=== PATIENT | male | born 1995 | race Two or more races ===

== ENCOUNTER 2024-10-12 08:23 | Inpatient (IN) | payer OTHER ==
[~2024-10-12] VITALS: Ht 188 cm; Wt 98.9 kg
--- NOTE | 2024-10-12 08:36 | ED.PDOC ---
History of Present Illness HPI Comments 29-year-old male came to the ER stating that he has been having nausea vomiting diarrhea since midnight. Unable to do his daily activities without having vomiting. Denies any past medical surgical history. Denies use of drugs. Denies any other symptoms. Chief Complaint: Nausea/Vomiting Time Seen by MD: 08:30 Reviewed Notes: Nurses Notes, Medications, Allergies Information Source: Patient Mode of Arrival: Ambulatory Severity: Moderate Timing: Hours Duration: Since onset Past Medical History PAST MEDICAL HISTORY: Denies Surgical History: Denies all surgeries Social History Smoker: Non-Smoker Alcohol: Denies ETOH Use Drugs: Denies Drug Use Constitutional: denies: chills, diaphoresis, fatigue, fever, malaise, sweats, weakness, others EENTM: denies: blurred vision, double vision, ear bleeding, ear discharge, ear drainage, ear pain, ear ringing, eye pain, eye redness, hearing loss, mouth pain, mouth swelling, nasal discharge, nose bleeding, nose congestion, nose pain, photophobia, tearing, throat pain, throat swelling, voice changes, others Respiratory: denies: cough, hemoptysis, orthopnea, SOB at rest, shortness of breath, SOB with excertion, stridor, wheezing, others Cardiovascular: denies: chest pain, dizzy spells, diaphoresis, Dyspnea on exertion, edema, irregular heart beat, left arm pain, lightheadedness, palpitations, PND, syncope, others Gastrointestinal: reports: diarrhea, nausea, vomiting; denies: abdomen distended, abdominal pain, blood streaked bowels, constipated, dysphagia, difficulty swallowing, hematemesis, melena, poor appetite, poor fluid intake, rectal bleeding, rectal pain, others Genitourinary: denies: burning, dysuria, flank pain, frequency, hematuria, incontinence, penile discharge, penile sore, pain, testicle pain, testicle swelling, urgency, others Neurological: denies: dizziness, fainting, headache, left sided numbness, left sided weakness, numbness, paresthesia, pre-existing deficit, right sided numbness, right sided weakness, seizure, speech problems, tingling, tremors, weakness, others Musculoskeletal: denies: back pain, gout, joint pain, joint swelling, muscle pain, muscle stiffness, neck pain, others Integumetry: denies: bruises, change in color, change in hair/nails, dryness, laceration, lesions, lumps, rash, wounds, others Allergic/Immunocompromised: denies: Difficulty Healing, Frequent Infections, Hives, Itching, others Hematologic/Lymphatic: denies: anemia, blood clots, easy bleeding, easy bruising, swollen glands, others Endocrine: denies: excessive hunger, excessive sweating, excessive thirst, excessive urination, flushing, intolerance to cold, intolerance to heat, unexplained weight gain, unexplained weight loss, others Psychiatric: denies: anxiety, bipolar disorder, depression, hopeless, panic disorder, schizophrenia, sleepless, suicidal, others Physical Exam General Appearance: Moderate Distress HEENT: Normal ENT Inspection, Pharynx Normal, TMs Normal Neck: Full Range of Motion, Non-Tender, Normal, Normal Inspection Respiratory: Chest Non-Tender, Lungs Clear, No Accessory Muscle Use, No Respiratory Distress, Normal Breath Sounds Cardiovascular: No Edema, No JVD, No Murmur, No Gallop, Normal Peripheral Pulses, Regular Rate/Rhythm Breast Exam: Deferred Gastrointestinal: No Organomegaly, Non Tender, No Pulsatile Mass, Normal Bowel Sounds, Soft Genitalia: Deferred Pelvic: Deferred Rectal: Deferred Extremities: No calf tenderness, Normal capillary refill, Normal inspection, Normal range of motion, Non-tender, No pedal edema Musculoskeletal : Apperance: Normal Neurologic: Alert, collection advisor II-XII nml as Tested, No Motor Deficits, Normal Affect, Normal Mood, No Sensory Deficits Cerebellar Function: Normal Reflexes: Normal Skin: Dry, Normal Color, Warm Peripheral Pulses: 3+ Radial (R), 3+ Radial (L) Lymphatic: No Adenopathy Was a procedure done? Was a procedure done?: No Differential Dx Considerations may include: Gastroenteritis Electrolyte imbalance X-Ray, Labs, Meds, VS Vital Signs Date Time Temp Pulse Resp B/P (MAP) Pulse Ox O2 Delivery O2 Flow Rate FiO2 10/12/24 08:51 98.0 108 16 135/85 (102) 97 98.0 10/12/24 08:51 108 16 97 Room Air 10/12/24 08:32 98.0 108 16 135/85 (102) 97 Lab Test 10/12/24 10:09 Range/Units White Blood Count 12.7 H 4.4-10.8 10^3/uL Red Blood Count 5.54 4.5-5.90 10^6/uL Hemoglobin 15.6 13.5-17.5 g/dL Hematocrit 46.6 41.0-53.0 % Mean Corpuscular Volume 84.2 80.0-100.0 fL Mean Corpuscular Hemoglobin 28.2 28.0-32.0 pg Mean Corpuscular Hemoglobin Concent 33.5 32.0-36.0 g/dL Red Cell Distribution Width 15.4 H 11.8-14.3 % Platelet Count 201 140-450 10^3/uL Mean Platelet Volume 8.2 6.9-10.8 fL Neutrophils (%) (Auto) 37.0-80.0 % Lymphocytes (%) (Auto) 10.0-50.0 % Monocytes (%) (Auto) 0.0-12.0 % Basophils (%) (Auto) 0.0-2.0 % Neutrophils # (Auto) 1.6-8.6 10 ^3/uL Lymphocytes # (Auto) 0.4-5.4 10 ^3/uL Monocytes # (Auto) 0-1.3 10 ^3/uL Differential Total Cells Counted 100.0 100 Neutrophils % (Manual) 90 H 37.0-80.0 Band Neutrophils % (Manual) 0 Lymphocytes % (Manual) 7 L 10.0-50.0 Monocytes % (Manual) 3 0-12 Eosinophils % (Manual) 0 0-7 Basophils % (Manual) 0 0.0-2.0 Metamyelocytes % (manual) 0 Myelocytes % (Manual) 0 Promyelocytes % (Manual) 0 Blast Cells % (Manual) 0 Reactive Lymphocytes 0 Smudge Cells 6 /100 WBC Platelet Estimate Adequate Patient alert. Complaining of nausea vomiting diarrhea. Vitals stable. Answering all questions. Abdomen is soft nontender. Ambulating. Was given Zofran. See elevated. Was given Rocephin. Was given Flagyl. Establish intravenous access. Was given fluids. Continue monitoring. Time of 1ST Reevaluation: 08:35 Reevaluation 1ST: Unchanged Patient Education/Counseling: Diagnosis, Treatment, Prognosis Family Education/Counseling: No Family Present Departure 1 Departure Time of Disposition: 08:35 Impression: Primary Impression: Gastroenteritis Disposition: 09 ADMITTED INPATIENT Admit to: Med Surg Condition: Guarded Critical Care Note Critical Care Time?: No Stability Stability form required: No Heart Score Heart Score: Heart Score Response (Comments) Value History N/A 0 EKG N/A 0 Age N/A 0 Risk Factors N/A 0 Troponin N/A 0 Total 0 MARILIA JONES MD Oct 12, 2024 08:36
[2024-10-12] MEDS: SODIUM CHLORIDE 0.9% 1,000 ML IV ONE (10:00)
[2024-10-12 10:24] LABS: Hematocrit 46.6 % (41.0-53.0); Hemoglobin 15.6 g/dL (13.5-17.5); Mean Corpuscular Hemoglobin 28.2 pg (28.0-32.0); Mean Corpuscular Hgb Conc. 33.5 g/dL (32.0-36.0); Mean Corpuscular Volume 84.2 fL (80.0-100.0); Platelet Count (auto) 201 10^3/uL (140-450); Red Blood Cells 5.54 10^6/uL (4.5-5.90); Red Cell Distribution Width 15.4 % (11.8-14.3); White Blood Cell 12.7 10^3/uL (4.4-10.8)
[2024-10-12 10:26] LABS: Band Neutrophils % (manual) 0; Basophils % (manual) 0 (0.0-2.0); Blast Cells 0; Eosinophils % (manual) 0 (0-7); Metamyelocytes % 0; Myelocytes % 0; Promyelocytes % 0; Reactive Lymphocytes 0
[2024-10-12 10:51] LABS: Lymphocytes % (manual) 7 (10.0-50.0); Monocytes % (manual) 3 (0-12); Platelet Estimate Adequate; Smudge Cells 6 /100 WBC
--- NOTE | 2024-10-12 11:39 | DVH ---
CT ABDOMEN AND PELVIS WITHOUT CONTRAST CLINICAL HISTORY: enteritis TECHNIQUE: Multiple contiguous axial images of the abdomen and pelvis without intravenous contrast. The images were reformatted degenerate coronal and sagittal reconstructions. All CT scans at this medical facility are performed using dose modulation techniques as appropriate t o a performed exam including the following:Automated exposure control was utilized; adjustment of the MA and/or KV according to patient size; and use of iterative reconstruction technique. Radiation Dose Information: CT Dose: CTDI volume is 12.11 mGy. Dose-length product is 779.06 mGy*cm Comparison: None FINDINGS: Evaluation of the abdomen and pelvis is limited without intravenous contrast. There is fatty infiltration of the liver. The gallbladder, pancreas, kidneys, adrenal glands, and spleen appear within normal limits. There is no gross evidence of abdominal lymphadenopathy. There is no free fluid or free air. There is a small hiatal hernia. The stomach otherwise grossly appears unremarkable. The small and la rge bowel loops demonstrate normal caliber. There is a normal-appearing appendix seen in the right l ower quadrant abdomen. The abdominal aorta and IVC appear within normal limits. The bladder appears unremarkable for the degree of distention. Pelvic organ appears within normal call its. There is no gross evidence of a pelvic mass. There is no free fluid collection. Lung bases are clear. There is no acute osseous abnormality. IMPRESSION: 1. There is no acute process in the abdomen and pelvis. 2. Hepatic steatosis. HS:Y
[2024-10-12] MEDS: cefTRIAXone 1GM/50ML D5W 50 ML IV ONE (11:53)
[2024-10-12 13:10] LABS: Alanine Aminotransferase 39 U/L (7-40); Alkaline Phosphatase 109 U/L (46-116); Anion Gap 9 (5-15); Aspartate Aminotransferase 29 U/L (13-40); BUN/Creatinine Ratio 10.5 (10.0-20.0); Bilirubin, Total 0.8 mg/dL (0.2-1.0); Blood Urea Nitrogen 12 mg/dL (9-23); Calcium 10.1 mg/dL (8.7-10.4); Carbon Dioxide 28 mmol/L (20-31); Chloride 101 mmol/L (98-107); Glucose 106 mg/dL (74-106); Potassium 4.1 mmol/L (3.5-5.1); Sodium 138 mmol/L (136-145)
[2024-10-12 13:11] LABS: Total Protein 7.4 g/dL (5.7-8.2)
[2024-10-12 13:32] LABS: Lactic Acid w/Reflex 2.4 mmol/L (0.4-2.0)
[2024-10-12] MEDS: SODIUM CHLORIDE 0.9% 1,000 ML IV SCH (13:45)
[2024-10-12] MEDS: metroNIDAZOLE 500MG/100ML 100 ML IV ONE (13:53)
--- NOTE | 2024-10-12 13:55 | DVHHP2 ---
History of Present Illness Reason for Visit: Nausea, vomiting, and diarrhea History of Present Illness Darron Naylor is a 29-year-old male with past medical history of bilateral tendon surgery and right elbow surgery with pins who presents to the ED for nausea, vomiting, and diarrhea since last night. Patient reports that he had some [employer] but does not believe that it was spoiled food. Patient denies any recent sick contacts. Patient also denies recent illnesses. Patient denies any hematemesis or hematuria, hematochezia, abdominal pain, fever, chills, lightheadedness, weakness, dizziness, chest pain, and shortness of breath. Patient does report that he drinks 6 packs of beer per day right after work. Past Surgical History: Other (Bilateral tendon repair and right elbow surgery with pins) Family History: None Smoke: No ALCOHOL: heavy Drugs: None Lives: with Family Domestic Violence: Neg Review of Systems Constitutional: No: Fever, Chills, Sweats, Weakness, Malaise, Other Eyes: No: Pain, Vision change, Conjunctivae inflammation, Eyelid inflammation, Other, Redness ENT: No: Ear pain, Ear discharge, Nose pain, Nose discharge, Nose congestion, Mouth pain, Mouth swelling, Throat pain, Throat swelling, Other Respiratory: No: Cough, Dry, Shortness of breath, SOB with excertion, Wheezing, Hemoptysis, Pleuritic Pain, Sputum, Wheezing, Other Cardiovascular: No: Chest Pain, Palpitations, Orthopnea, Paroxysmal Noc. Dyspnea, Edema, Lt Headedness, Other Gastrointestinal: Nausea, Vomiting, Diarrhea; No: Abdominal Pain, Constipation, Melena, Hematochezia, Other Genitourinary: No Dysuria, No Frequency, No Incontinence, No Hematuria, No Retention, No Other Musculoskeletal: No: other, neck pain, shoulder pain, arm pain, back pain, hand pain, leg pain, foot pain Skin: No: Rash, Lesions, Jaundice, Bruising, Other Neurological: No: Weakness, Numbness, Incoordination, Change in speech, Confusion, Seizures, Other Allergies: Coded Allergies: NO KNOWN ALLERGIES (Unverified , 10/12/24) Medications Current Medications Medications Dose Ordered Sig/Gabby Route Start Time Stop Time Status Last Admin Dose Admin Ceftriaxone Sodium 50 ml @ 100 mls/hr DAILY@09 IV 10/13/24 09:00 UNV Metronidazole 100 ml @ 100 mls/hr Q8HR IV 10/12/24 14:00 UNV Sodium Chloride 1,000 ml @ 75 mls/hr [id number] IV 10/12/24 13:45 UNV Exam Vital Signs Vital Signs Date Time Temp Pulse Resp B/P (MAP) Pulse Ox O2 Delivery O2 Flow Rate FiO2 10/12/24 08:51 98.0 108 16 135/85 (102) 97 98.0 10/12/24 08:51 Room Air General Appearance: Alert, Oriented X3, Cooperative, No acute distress HEENT: Atraumatic, PERRLA, EOMI, Mucous membr. moist/pink Respiratory: Clear to auscultation, Normal air movement Cardiovascular: Normal S1, Normal S2, No murmurs Abdominal: Normal bowel sounds, Soft, No tenderness, No hepatospenomegaly, No masses Extremities: No clubbing, No cyanosis, No edema, Normal pulses, No tenderness/swelling Skin: No rashes, No breakdown, No significant lesion Neuro: Normal gait, Normal speech, Strength at 5/5 X4 ext, Normal tone Psych/Mental Status: Mental status NL, Mood NL Labs/Xrays Labs Test 10/12/24 12:13 10/12/24 10:09 Range/Units Lactic Acid Level 2.4 *H 0.4-2.0 mmol/L White Blood Count 12.7 H 4.4-10.8 10^3/uL Red Blood Count 5.54 4.5-5.90 10^6/uL Hemoglobin 15.6 13.5-17.5 g/dL Hematocrit 46.6 41.0-53.0 % Mean Corpuscular Volume 84.2 80.0-100.0 fL Mean Corpuscular Hemoglobin 28.2 28.0-32.0 pg Mean Corpuscular Hemoglobin Concent 33.5 32.0-36.0 g/dL Red Cell Distribution Width 15.4 H 11.8-14.3 % Platelet Count 201 140-450 10^3/uL Mean Platelet Volume 8.2 6.9-10.8 fL Neutrophils (%) (Auto) 37.0-80.0 % Lymphocytes (%) (Auto) 10.0-50.0 % Monocytes (%) (Auto) 0.0-12.0 % Basophils (%) (Auto) 0.0-2.0 % Neutrophils # (Auto) 1.6-8.6 10 ^3/uL Lymphocytes # (Auto) 0.4-5.4 10 ^3/uL Monocytes # (Auto) 0-1.3 10 ^3/uL Differential Total Cells Counted 100.0 100 Neutrophils % (Manual) 90 H 37.0-80.0 Band Neutrophils % (Manual) 0 Lymphocytes % (Manual) 7 L 10.0-50.0 Monocytes % (Manual) 3 0-12 Eosinophils % (Manual) 0 0-7 Basophils % (Manual) 0 0.0-2.0 Metamyelocytes % (manual) 0 Myelocytes % (Manual) 0 Promyelocytes % (Manual) 0 Blast Cells % (Manual) 0 Reactive Lymphocytes 0 Smudge Cells 6 /100 WBC Platelet Estimate Adequate Sodium Level 138 136-145 mmol/L Potassium Level 4.1 3.5-5.1 mmol/L Chloride Level 101 98-107 mmol/L Carbon Dioxide Level 28 20-31 mmol/L Anion Gap 9 5-15 Blood Urea Nitrogen 12 9-23 mg/dL Creatinine 1.14 0.700-1.30 mg/dL Glomerular Filtration Rate Calc 90 >90 mL/min BUN/Creatinine Ratio 10.5 10.0-20.0 Serum Glucose 106 74-106 mg/dL Calcium Level 10.1 8.7-10.4 mg/dL Total Bilirubin 0.8 0.2-1.0 mg/dL Aspartate Amino Transferase (AST) 29 13-40 U/L Alanine Aminotransferase (ALT) 39 7-40 U/L Alkaline Phosphatase 109 46-116 U/L Total Protein 7.4 5.7-8.2 g/dL Albumin 5.0 H 3.2-4.8 g/dL CT ABDOMEN AND PELVIS WITHOUT CONTRAST CLINICAL HISTORY: enteritis TECHNIQUE: Multiple contiguous axial images of the abdomen and pelvis without intravenous contrast. The images were reformatted degenerate coronal and sagittal reconstructions. All CT scans at this medical facility are performed using dose modulation techniques as appropriate to a performed exam including the following:Automated exposure control was utilized; adjustment of the MA and/or KV according to patient size; and use of iterative reconstruction technique. Radiation Dose Information: CT Dose: CTDI volume is 12.11 mGy. Dose-length product is 779.06 mGy*cm Comparison: None FINDINGS: Evaluation of the abdomen and pelvis is limited without intravenous contrast. There is fatty infiltration of the liver. The gallbladder, pancreas, kidneys, adrenal glands, and spleen appear within normal limits. There is no gross evidence of abdominal lymphadenopathy. There is no free fluid or free air. There is a small hiatal hernia. The stomach otherwise grossly appears unremarkable. The small and large bowel loops demonstrate normal caliber. There is a normal-appearing appendix seen in the right lower quadrant abdomen. The abdominal aorta and IVC appear within normal limits. The bladder appears unremarkable for the degree of distention. Pelvic organ appears within normal limits. There is no gross evidence of a pelvic mass. There is no free fluid collection. Lung bases are clear. There is no acute osseous abnormality. IMPRESSION: 1. There is no acute process in the abdomen and pelvis. 2. Hepatic steatosis. Assessment/Plan Assessment/Plan Assessment/Plan: Intractable nausea and vomiting likely due to gastroenteritis Leukocytosis rule out sepsis Labs IV antibiotics-Flagyl plus ceftriaxone NS 1 L given ED Lactic Blood cultures CT abdomen and pelvis Manual differential UA IV fluids Lipase Amylase Urine alcohol A.m. labs Antiemetics Pain management ETOH abuse Counseled patient on cessation of EtOH FEN/PPX Diet IV fluids DVT prophylaxis not indicated patient ambulating PUD prophylaxis not indicated no history of GERD or GI bleed Admit to med surg Patient states he doesn't take any home medications Discussed plan of care with patient and nurse Plan discussed with: Patient My Orders Orders - ARAMIS PINON Procedure Category Date Status Time Urinalysis LAB 10/12/24 Logged 12:44 Ceftriaxone 1gm/50ml PHA 10/13/24 Logged D5w (Rocephin) 09:00 Metronidazole PHA 10/12/24 Logged 500mg/100ml (Flagyl 14:00 Sodium Chloride 0.9% PHA 10/12/24 Logged 13:45 Lipase LAB 10/12/24 Logged 13:41 Amylase LAB 10/12/24 Logged 13:41 Urine Ethanol LAB 10/12/24 Logged 13:41 Date of Service: Oct 12, 2024 Billing Provider: ARAMIS PINON Common Visit Codes: [id number] INP/OBS CARE (HIGH) ARAMIS PINON Oct 12, 2024 13:55
[2024-10-12] MEDS ORDERED: ONDANSETRON HCL 4 MG/2 ML VIAL IV PRN (14:00)
[2024-10-12] MEDS: metroNIDAZOLE 500MG/100ML 100 ML IV SCH (14:00)
[2024-10-12 16:11] LABS: Blood Alcohol 7.5 mg/dL (<10)
[2024-10-12 17:49] VITALS: BP 123/77; PULSE 95; RESP 18; TEMP 99.3; O2SAT 97
[2024-10-12 19:52] VITALS: BP 130/82; PULSE 109; RESP 18; TEMP 100; O2SAT 95
[2024-10-12 21:00] VITALS: BP 145/79; PULSE 90; RESP 20; TEMP 100.7; O2SAT 96
[2024-10-13] MEDS: ACETAMINOPHEN 325 MG TAB PO PRN (00:30)
[2024-10-13 01:00] VITALS: BP 149/72; PULSE 89; RESP 19; TEMP 101.5; O2SAT 94
[2024-10-13 01:40] LABS: Urine Bacteria None Seen /hpf (None Seen)
[2024-10-13 01:55] LABS: Urine Blood Negative /uL (Negative); Urine Clarity Clear (Clear); Urine Color Yellow (Yellow); Urine Mucus FEW (None Seen); Urine Protein, UAD TRACE (Negative); Urine Specific Gravity 1.027 (1.001-1.035); Urine Squamous Epithelial Cell None Seen /hpf (<5); Urine Urobilinogen Normal (Negative); Urine WBC 1 /HPF (0-3); Urine pH 7.5 (5.0-9.0)
[2024-10-13 05:00] VITALS: BP 123/86; PULSE 91; RESP 18; TEMP 98.5; O2SAT 96
[2024-10-13 06:07] LABS: Basophils # (auto) 0 10 ^3/uL (0-0.2); Basophils % (auto) 0.2 % (0.0-2.0); Eosinophils # (auto) 0 10 ^3/uL (0-0.8); Eosinophils % (auto) 0.9 % (0.0-7.0); Hematocrit 42.3 % (41.0-53.0); Hemoglobin 14.3 g/dL (13.5-17.5); Lymphocytes # (auto) 0.5 10 ^3/uL (0.4-5.4); Mean Corpuscular Hemoglobin 28.3 pg (28.0-32.0); Mean Corpuscular Hgb Conc. 33.7 g/dL (32.0-36.0); Mean Corpuscular Volume 84.1 fL (80.0-100.0); Monocytes # (auto) 0.2 10 ^3/uL (0-1.3); Monocytes % (auto) 4.8 % (0.0-12.0); Neutrophils % (auto) 83.1 % (37.0-80.0); Nucleated Red Blood Cells % 0.1 %; Platelet Count (auto) 146 10^3/uL (140-450); Red Blood Cells 5.04 10^6/uL (4.5-5.90); Red Cell Distribution Width 15.2 % (11.8-14.3); White Blood Cell 4.9 10^3/uL (4.4-10.8)
[2024-10-13 06:25] LABS: Alanine Aminotransferase 26 U/L (7-40); Albumin 4.3 g/dL (3.2-4.8); Alkaline Phosphatase 85 U/L (46-116); Anion Gap 9 (5-15); Aspartate Aminotransferase 22 U/L (13-40); BUN/Creatinine Ratio 9.2 (10.0-20.0); Bilirubin, Total 0.9 mg/dL (0.2-1.0); Blood Urea Nitrogen 11 mg/dL (9-23); Calcium 9.1 mg/dL (8.7-10.4); Carbon Dioxide 24 mmol/L (20-31); Chloride 104 mmol/L (98-107); Glucose 91 mg/dL (74-106); Potassium 3.3 mmol/L (3.5-5.1); Sodium 137 mmol/L (136-145); Total Protein 6.7 g/dL (5.7-8.2)
[2024-10-13] MEDS: cefTRIAXone 1GM/50ML D5W 50 ML IV SCH (08:50)
[2024-10-13 09:00] VITALS: BP 119/72; PULSE 95; RESP 20; TEMP 99.7; O2SAT 95
--- NOTE | 2024-10-13 12:07 | DVHPN2 ---
Reviewed: Care Plan, H&P, Labs, Medications, Previous Orders, Radiology Changes from previous H/P or p: No Changes Eyes: No Pain, No Vision change, No Conjunctivae inflammation, No Eyelid inflammation, No Other, No Redness ENT: No Ear pain, No Ear discharge, No Nose pain, No Nose discharge, No Nose congestion, No Mouth pain, No Mouth swelling, No Throat pain, No Throat swelling, No Other Cardiovascular: No Chest Pain, No Palpitations, No Orthopnea, No Paroxysmal Noc. Dyspnea, No Edema, No Lt Headedness, No Other Respiratory: No Cough, No Dry, No Shortness of breath, No SOB with excertion, No Wheezing, No Hemoptysis, No Pleuritic Pain, No Sputum, No Other Gastrointestinal: Nausea, Vomiting; No Abdominal Pain; Diarrhea; No Constipation, No Melena, No Hematochezia, No Other Genitourinary: No Dysuria, No Frequency, No Incontinence, No Hematuria, No Retention, No Other Musculoskeletal: No other, No neck pain, No shoulder pain, No arm pain, No back pain, No hand pain, No leg pain, No foot pain Skin: No Rash, No Lesions, No Jaundice, No Bruising, No Other Objective Vitals Vital Signs Date Time Temp Pulse Resp B/P (MAP) Pulse Ox O2 Delivery O2 Flow Rate FiO2 10/13/24 09:00 99.7 95 20 119/72 (88) 95 99.7 10/13/24 08:04 Room Air* 0 21 Intake/Output Intake and Output 10/13/24 07:00 Intake Total 1565 ml Output Total 1250 ml Balance 315 ml Intake Oral 240 ml IV Total 1325 ml Output Urine Total 1250 ml Medications Current Medications Medications Dose Ordered Sig/Gabby Route Start Time Stop Time Status Last Admin Dose Admin Ceftriaxone Sodium 50 ml @ 100 mls/hr DAILY@09 IV 10/13/24 09:00 10/13/24 08:50 100 MLS/HR Metronidazole 100 ml @ 100 mls/hr Q8HR IV 10/12/24 14:00 10/13/24 06:18 100 MLS/HR Sodium Chloride 1,000 ml @ 75 mls/hr [id number] IV 10/12/24 13:45 10/13/24 03:05 75 MLS/HR Ondansetron HCl 4 mg Q4HP PRN IV 10/12/24 14:00 Acetaminophen 650 mg Q6HP PRN PO 10/12/24 14:00 10/13/24 00:30 650 MG Laboratory Results Laboratory Tests 10/13/24 05:18 Chemistry Test 10/13/24 05:18 Albumin 4.3 g/dL (3.2-4.8) Calcium Level 9.1 mg/dL (8.7-10.4) Total Protein 6.7 g/dL (5.7-8.2) LFT Test 10/13/24 05:18 Alanine Aminotransferase (ALT) 26 U/L (7-40) Alkaline Phosphatase 85 U/L (46-116) Aspartate Amino Transferase (AST) 22 U/L (13-40) Total Bilirubin 0.9 mg/dL (0.2-1.0) Urinalysis Test 10/13/24 01:20 Urine Color Yellow (Yellow) Urine Clarity Clear (Clear) Urine pH 7.5 (5.0-9.0) Urine Specific [place] 1.027 (1.001-1.035) Urine Protein Trace (Negative) H Urine Ketones Negative (Negative) Urine Blood Negative /uL (Negative) Urine Nitrite Negative (Negative) Urine Bilirubin Negative (Negative) Urine Urobilinogen Normal mg/dL (Negative) Urine Leukocyte Esterase Negative /uL (Negative) Urine RBC 1 /hpf (0 - 3) Urine Microscopic WBC 1 /HPF (0-3) Urine Squamous Epithelial Cells None seen /hpf (<5) Urine Bacteria None seen /hpf (None Seen) Urine Mucus Few (None Seen) Urine Glucose Normal mg/dL (Normal) Labs and/or images reviewed: Labs reviewed by me, Image(s) reviewed by me Assessment/Plan Assessment/Plan Acute abdominal pain with nausea and vomiting Acute gastroenteritis: Rocephin Flagyl Acute dehydration: IV fluids Acute lactic acidosis Chronic current alcohol abuse Plan discussed with: Patient Date of Service: Oct 13, 2024 Billing Provider: DEYSI HERNANDEZ MD Common Visit Codes: [id number] INP/OBS CARE(HIGH) DEYSI HERNANDEZ MD Oct 13, 2024 12:07
[2024-10-13 12:47] VITALS: BP 130/76; PULSE 95; RESP 20; TEMP 99.3; O2SAT 96
[2024-10-13 17:08] VITALS: BP 135/85; PULSE 85; RESP 21; TEMP 98.3; O2SAT 97
[2024-10-13 21:00] VITALS: BP 139/86; PULSE 92; RESP 20; TEMP 98.7; O2SAT 96
[2024-10-14 01:00] VITALS: TEMP 98.2
[2024-10-14 05:00] VITALS: BP 115/78; PULSE 82; RESP 20; TEMP 97.2; O2SAT 96
[2024-10-14 08:00] VITALS: PULSE 85; RESP 16
[2024-10-14 09:00] VITALS: BP 131/70; PULSE 70; RESP 16; TEMP 97.7; O2SAT 98
--- NOTE | 2024-10-14 12:04 | DVHDS2 ---
Discharge Summary Date of Admission Oct 12, 2024 at 13:47 Date of Discharge: Oct 14, 2024 Admitting Diagnosis Nausea and vomiting and abdominal pain Wounds: None Labs/Diagnostic Data: Laboratory Results Test 10/13/24 05:18 10/13/24 01:20 10/12/24 14:30 10/12/24 10:09 White Blood Count 4.9 10^3/uL (4.4-10.8) Red Blood Count 5.04 10^6/uL (4.5-5.90) Hemoglobin 14.3 g/dL (13.5-17.5) Hematocrit 42.3 % (41.0-53.0) Mean Corpuscular Volume 84.1 fL (80.0-100.0) Mean Corpuscular Hemoglobin 28.3 pg (28.0-32.0) Mean Corpuscular Hemoglobin Concent 33.7 g/dL (32.0-36.0) Red Cell Distribution Width 15.2 % (11.8-14.3) Platelet Count 146 10^3/uL (140-450) Mean Platelet Volume 8.6 fL (6.9-10.8) Neutrophils (%) (Auto) 83.1 % (37.0-80.0) Lymphocytes (%) (Auto) 11.0 % (10.0-50.0) Monocytes (%) (Auto) 4.8 % (0.0-12.0) Eosinophils (%) (Auto) 0.9 % (0.0-7.0) Basophils (%) (Auto) 0.2 % (0.0-2.0) Neutrophils # (Auto) 4.0 10 ^3/uL (1.6-8.6) Lymphocytes # (Auto) 0.5 10 ^3/uL (0.4-5.4) Monocytes # (Auto) 0.2 10 ^3/uL (0-1.3) Eosinophils # (Auto) 0 10 ^3/uL (0-0.8) Basophils # (Auto) 0 10 ^3/uL (0-0.2) Nucleated Red Blood Cells 0.1 % Sodium Level 137 mmol/L (136-145) Potassium Level 3.3 mmol/L (3.5-5.1) Chloride Level 104 mmol/L (98-107) Carbon Dioxide Level 24 mmol/L (20-31) Anion Gap 9 (5-15) Blood Urea Nitrogen 11 mg/dL (9-23) Creatinine 1.19 mg/dL (0.700-1.30) Glomerular Filtration Rate Calc 86 mL/min (>90) BUN/Creatinine Ratio 9.2 (10.0-20.0) Serum Glucose 91 mg/dL (74-106) Calcium Level 9.1 mg/dL (8.7-10.4) Total Bilirubin 0.9 mg/dL (0.2-1.0) Aspartate Amino Transferase (AST) 22 U/L (13-40) Alanine Aminotransferase (ALT) 26 U/L (7-40) Alkaline Phosphatase 85 U/L (46-116) Total Protein 6.7 g/dL (5.7-8.2) Albumin 4.3 g/dL (3.2-4.8) Urine Color Yellow (Yellow) Urine Clarity Clear (Clear) Urine pH 7.5 (5.0-9.0) Urine Specific [place] 1.027 (1.001-1.035) Urine Protein Trace (Negative) Urine Ketones Negative (Negative) Urine Blood Negative /uL (Negative) Urine Nitrite Negative (Negative) Urine Bilirubin Negative (Negative) Urine Urobilinogen Normal mg/dL (Negative) Urine Leukocyte Esterase Negative /uL (Negative) Urine RBC 1 /hpf (0 - 3) Urine Microscopic WBC 1 /HPF (0-3) Urine Squamous Epithelial Cells None seen /hpf (<5) Urine Bacteria None seen /hpf (None Seen) Urine Mucus Few (None Seen) Urine Glucose Normal mg/dL (Normal) Lactic Acid Level 1.6 mmol/L (0.4-2.0) Differential Total Cells Counted 100.0 (100) Neutrophils % (Manual) 90 (37.0-80.0) Band Neutrophils % (Manual) 0 Lymphocytes % (Manual) 7 (10.0-50.0) Monocytes % (Manual) 3 (0-12) Eosinophils % (Manual) 0 (0-7) Basophils % (Manual) 0 (0.0-2.0) Metamyelocytes % (manual) 0 Myelocytes % (Manual) 0 Promyelocytes % (Manual) 0 Blast Cells % (Manual) 0 Reactive Lymphocytes 0 Smudge Cells 6 /100 WBC Platelet Estimate Adequate Amylase Level 99 U/L (30-118) Lipase 32 U/L (12-53) Plasma/Serum Blood Alcohol 7.5 mg/dL (<10) Other Laboratory Tests 10/13/24 05:18 Brief Hx & Hospital Course: [age] male after eating at [employer] restaurant came to ER for abdominal pain nausea and vomiting found to have acute gastroenteritis secondary to food poisoning treated with Rocephin Flagyl IV fluids history of alcohol abuse. At the time of discharge patient is alert awake tolerating regular diet afebrile ambulating and like to be discharged home. Discharged home. No new meds.. CT abdomen pelvis without contrast negative Consults/Reason for consult None Operations or Procedures CT abdomen pelvis without contrast Condition at Discharge: Fair Final Diagnosis/Problems List Acute abdominal pain with nausea and vomiting Acute gastroenteritis: Rocephin Flagyl Possible food Poisoning after eating at [employer] Acute dehydration: IV fluids Acute lactic acidosis Chronic current alcohol abuse Discharge Disposition: Home Discharge Instruct/Medications Diet: Regular Activity: No Restrictions, As Tolerated Follow Up/Referral: Follow up with the primary Dr if needed Drink plenty of Gatorade Medications: none 35 (Time Taken for discharge summary 35 minutes) Discharge Statement: "Patient was advised to return to the ER or call 911 if any headaches, dizziness, shortness of breath, chest pain, abdominal pain, bleeding, fevers, or worsening of medical condition. Patient was counseled about treatment plan, medications, possible side effects, patientverbalized understanding. All questions were answered to the best of my ability. This discharge took greater then 30 minutes in planning, reviewing documentation, counseling the patient, and discussing with other team members." ASSESSMENT ASSESSMENT Hospital Course Improved Assessment Acute abdominal pain with nausea and vomiting Acute gastroenteritis: Rocephin Flagyl Possible food Poisoning after eating at [employer] Acute dehydration: IV fluids Acute lactic acidosis Chronic current alcohol abuse Date of Service: Oct 14, 2024 Billing Provider: DEYSI HERNANDEZ MD Common Visit Codes: [id number] DISCH DAY >30min DEYSI HERNANDEZ MD Oct 14, 2024 12:04
[2024-10-14 12:30] VITALS: BP 139/83; PULSE 94; RESP 16; TEMP 97.8; O2SAT 99
== END 2024-10-14 13:08 | disposition home or self-care (01) | DRG 372 ==
LOC: ER 08:23 → OVERFLOW 13:47 → WEST WING 13:48
PROVIDERS: ATTEND Family Medicine
DX: A04.9 Bacterial intestinal infection, unspecified (principal); E87.21 Acute metabolic acidosis; E86.0 Dehydration; F10.10 Alcohol abuse, uncomplicated; Y90.9 Presence of alcohol in blood, level not specified; K52.9 Noninfective gastroenteritis and colitis, unspecified
CPT/HCPCS: 36415; 74176; 80053; 80320; 81001; 82150; 83605; 83690; 85007; 85025; 85027; 87040; 96361; 96365; 96367; G0378; J3490